=== PATIENT | male | born 1990 | race Two or more races ===

== ENCOUNTER 2022-10-28 23:30 | Emergency (ER) | payer OTHER ==
[~2022-10-28] VITALS: Ht 185.4 cm; Wt 106.6 kg
== END 2022-10-29 04:23 | disposition home or self-care (01) ==
LOC: ER 23:30
DX: R53.1 Weakness (principal)

== ENCOUNTER 2023-06-19 00:33 | Emergency (ER) | payer OTHER ==
[~2023-06-19] VITALS: Ht 185.4 cm; Wt 106.6 kg
== END 2023-06-19 06:33 | disposition home or self-care (01) ==
LOC: ER 00:34
DX: M43.6 Torticollis (principal); M54.50 Low back pain, unspecified